=== PATIENT | female | born 1960 | race Caucasian/White ===

== ENCOUNTER → 2017-01-27 | Outpatient (CLI) | payer OTHER ==
[~2017-01-27] MED LIST: IBUP-103 PO; MULT1TAB22 PO
== END | disposition home or self-care (01) ==
LOC: C.PAPS 13:56
PROVIDERS: ATTEND Physician Assistant
DX: Z01.419 Encounter for gynecological examination (general) (routine) without abnormal findings (principal)

== ENCOUNTER → 2017-02-16 | Outpatient (CLI) | payer OTHER | END | disposition home or self-care (01) | LOC: C.PATHSPEC 11:06 | PROVIDERS: ATTEND Obstetrics & Gynecology | DX: D25.9 Leiomyoma of uterus, unspecified (principal); N92.0 Excessive and frequent menstruation with regular cycle ==

== ENCOUNTER → 2017-04-03 | Outpatient (CLI) | payer OTHER ==
--- NOTE | 2017-04-03 13:55 | MAMMOGRAPHY REPORT ---
BILATERAL DIGITAL DIAGNOSTIC MAMMOGRAM TOMOSYNTHESIS WITH CAD AND TARGETED LEFT ULTRASOUND: 04/03/2017 CLINICAL HISTORY: 6 Month Follow-up. TECHNIQUE: Breast tomosynthesis in addition to standard 2D mammography was performed. Current study was also evaluated with a Computer Aided Detection (CAD) system. Bilateral CC and MLO 2-D and tomosy nthesis images were obtained. COMPARISON: Comparison is made to exams dated: 09/29/2016 ultrasound, 09/29/2016 mammogram, 09/12/2016 mammogram, 09/11/2015 mammogram, 12/05/2013 mammogram, and 12/05/2013 ultrasound - [facility]. BREAST COMPOSITION: The tissue of both breasts is heterogeneously dense, which may obscure small mas ses. FINDINGS: There has been no significant interval change mammographically compared to prior exams. T here is an oval partially circumscribed and partially obscured mass seen within the left upper outer quadrant, best seen on the tomosynthesis images, measuring approximately 11 mm. This mass appears st able mammographically compared to the August 2016 exam, and in retrospect has likely been present o n prior exams including the November 2013 exam although it is difficult to make an accurate compariso n as the prior exam had only 2-D images. A round circumscribed 4 mm mass is also seen within the lef t 12:00 breast on the tomosynthesis images. The previously described small 1 mm cluster of punctate benign-appearing calcifications in the right upper outer quadrant is stable compared to the September 2016 exam. The remainder of both breasts are stable compared to prior exams, without suspicious mass es, calcifications, or areas of architectural distortion noted. Targeted ultrasound was performed of the area of the previously seen masses. In the left breast at 1 2:00, 3 cm from the nipple, again noted is an isoechoic circumscribed mass which measures 7 x 7 x 5 m m, and is not significantly changed compared to the September 2016 exam. Multiple small round/oval an echoic benign simple cysts were also seen within the left 12 and 1:00 breast, the largest measuring 8 x 6 mm in the left 1:00 periareolar region. It is unclear if the left 1:00 periareolar cyst versus the isoechoic left 12:00 mass correlates with the stable mammographic mass. One of the smaller cysts correspond with the smaller circumscribed left 12:00 mass mammographically. The possible subtle iso echoic mass versus normal fat lobule in the left 2:00 periareolar breast is unchanged, measuring 7 x 6 x 6 mm, and on real-time imaging today has the appearance of a normal fat lobule. No new masses ar e evident. IMPRESSION: ACR-BI-RADS CATEGORY 3: PROBABLY BENIGN, TARGETED ULTRASOUND ACR-BI-RADS CATEGORY 3: PRO BABLY BENIGN 1. Small cluster of benign-appearing punctate calcifications in the right upper outer quadrant is st able compared to the September 2016 exam, and is probably benign. Recommend short interval follow-up diagnostic tomosynthesis mammograms of the right breast in 6 months to confirm longer stability. 2. Isoechoic 7 mm mass in the left breast at 12:00 on ultrasound, which is stable compared to the 2015 exam and is probably benign and may represent a fibroadenoma. It is unclear if this chinedu esponds with the stable mammographic mass or if a benign simple cyst in the left 1:00 breast correspo nds. Recommend short interval follow-up diagnostic tomosynthesis mammograms and ultrasound of the le ft breast in 6 months to confirm longer stability. The patient has been verbally notified of the results. Approximately 10% of breast cancers are not detected with mammography. A negative mammographic report should not delay biopsy if a clinically suggestive mass is present. Patricia Pena M.D. ah/:04/03/2017 10:36:47 Ornamental Machine Operator: Lissa WITT)(Larissa), [facility] letter sent: Follow Up Recommended 3 BI-RADS Code: ACR-BI-RADS Category 3: Probably Benign Ultrasound BI-RADS: ACR-BI-RADS Category 3: Pr obably Benign
== END | disposition home or self-care (01) ==
LOC: C.MAMM 09:17
PROVIDERS: ATTEND Nurse Practitioner
DX: R92.0 Mammographic microcalcification found on diagnostic imaging of breast (principal); N63 Unspecified lump in breast

== ENCOUNTER → 2017-11-05 | Outpatient (CLI) | payer OTHER | END | disposition home or self-care (01) | LOC: C.LABPVFM 10:47 | PROVIDERS: ATTEND Family Medicine | DX: N39.0 Urinary tract infection, site not specified (principal) ==

== ENCOUNTER → 2017-11-16 | Outpatient (CLI) | payer OTHER ==
--- NOTE | 2017-11-16 14:42 | MAMMOGRAPHY REPORT ---
BILATERAL DIGITAL DIAGNOSTIC MAMMOGRAM TOMOSYNTHESIS WITH CAD AND TARGETED LEFT ULTRASOUND: 11/16/2017 CLINICAL HISTORY: Patient presents for diagnostic evaluation of both breasts to ensure stability of b enign-appearing right breast microcalcifications and a benign-appearing left breast masses. TECHNIQUE: Bilateral breast tomosynthesis in addition to standard 2D mammography was performed. Spot magnification right CC and ML views were also obtained. Current study was also evaluated with a hopscout Aided Detection (CAD) system. COMPARISON: Comparison is made to exams dated: 04/03/2017 ultrasound, 04/03/2017 mammogram, 09/29/2016 ma mmogram, 09/12/2016 mammogram, 09/11/2015 mammogram, and 12/05/2013 mammogram - [facility]. BREAST COMPOSITION: The tissue of both breasts is heterogeneously dense, which may obscure small mas ses. FINDINGS: There is a lobulated, partially circumscribed 7 x 8 x 6 mm mass in the upper outer middle o ne third of the left breast. When comparing back to prior available mammograms, this is unchanged in size and visual appearance from the 04/03/2017 mammograms, and likely also 09/12/2016. There is ano ther partially circumscribed 3.5 mm mass inferior to the dominant mass on the MLO view (tomosynthesis slice 31/45). No other suspicious spiculated or irregular mass, architectural distortion, developin g asymmetry or suspicious microcalcifications are identified in the left breast. The glandular pattern of the right breast is similar to prior mammograms. No obvious new mass, asymm etry or architectural distortion is seen. Spot magnification views of the right breast redemonstrate a small grouping of punctate microcalcifications in the upper outer middle one third of the breast, that appear stable dating back to spot magnification views performed on 09/29/2016, therefore likely benign. No new suspicious mass, architectural distortion or cluster of microcalcifications is seen i n the right breast. Targeted ultrasound was performed in the left upper outer quadrant, with particular attention to the 12:00 axis in the area of previously observed solid mass. In the 12:00 breast, 3 cm from the nipple, there is an isoechoic circumscribed lobulated mass measuring 6.7 x 4.6 x 6.3 mm. This is unchanged when comparing to prior ultrasounds dating back to 09/29/2016, at which time it measured 6.8 x 5.8 x 6.2 mm. Another 12 month follow-up targeted ultrasound is recommended to ensure at least 2 years of stability to confirm benignity. There are other scattered cysts throughout the 1:00 left breast on u ltrasound, the largest of which measures 3.1 mm. A hypoechoic nearly anechoic solid versus cystic ci rcumscribed mass is identified in the 4:00 left breast, 2 cm from the nipple, measuring 3.0 x 2.6 x 2 .5 mm. This may correlate with the newly visualized circumscribed mammographic mass inferior to the dominant mass on the MLO view. No suspicious spiculated or irregular hypoechoic solid mass is identi fied on targeted ultrasound in the left breast. IMPRESSION: ACR-BI-RADS CATEGORY 3: PROBABLY BENIGN, TARGETED ULTRASOUND ACR-BI-RADS CATEGORY 3: PRO BABLY BENIGN 1. Stable mammographic appearance of both breasts, including a small grouping of punctate benign-carlin earing microcalcifications in the upper outer quadrant of the right breast. Another 12 month follow- up diagnostic mammogram including repeat right spot magnification views is recommended to ensure long er stability of the calcifications. 2. Stable mammographic and sonographic appearance of a dominant circumscribed and lobulated solid ap pearing 6.7 mm mass in the 12:00 left breast, 3 cm from the nipple. Another 12 month follow-up targe inna left breast ultrasound is recommended to ensure at least 2 years of stability to confirm benignit y. 3. At the time of follow-up in the left breast, repeat attention should be paid to a benign-appearin g circumscribed hypoechoic 3 mm mass in the 4:00 left breast, 2 cm from the nipple, as well. These results and recommendations were discussed with the patient at the time of the exam. Bilateral tomosynthesis mammography and right spot magnification views as well as repeat targeted ultrasound i s recommended in 12 months. Approximately 10% of breast cancers are not detected with mammography. A negative mammographic report should not delay biopsy if a clinically suggestive mass is present. Kimi Swan M.D. ay/:11/16/2017 12:34:14 Rotational Moulding Operator: Lissa NEUMANN(Harvey)(M), [facility] letter sent: Follow Up Recommended 3 BI-RADS Code: ACR-BI-RADS Category 3: Probably Benign Ultrasound BI-RADS: ACR-BI-RADS Category 3: Pr obably Benign
== END | disposition home or self-care (01) ==
LOC: C.MAMM 09:58
PROVIDERS: ATTEND Nurse Practitioner
DX: R92.0 Mammographic microcalcification found on diagnostic imaging of breast (principal); N63.20 Unspecified lump in the left breast, unspecified quadrant